=== PATIENT | female | born 1965 | race Caucasian/White ===

== ENCOUNTER 2017-03-16 18:28 | Emergency (ER) | payer MEDICAID ==
[~2017-03-16] VITALS: Ht 165.1 cm; Wt 84.8 kg
[~2017-03-16 18:28] MED LIST: ASCO500T45 PO; ATOR20TA PO; BENZ1TAB90 PO; CALC-751 PO; CLON0.5T PO; COL250 PO; FOLI1TAB19 PO; FURO-572 PO; MONT10TA35 PO; MULT-298 PO; OLAN5TAB29 PO; OLAN7.5T1 PO; VENL150C1 PO; [UNRECOGNIZED DRUG - OTHER] OT
[2017-03-16 18:54] VITALS: BP 147/67
--- NOTE | 2017-03-16 20:10 | NUR ---
PATIENT AMBULATED TO ER BED 4.
--- NOTE | 2017-03-16 20:20 | NUR ---
PATIENT PRESENTS TO ED WITH LEFT ARM SWOLLEN . PT DENIES N/V/D; SKIN IS PINK/WARM/DRY; AAOX4 WITH EVEN AND STEADY GAIT; LUNGS CLEAR BL; HR EVEN AND REGULAR; PT DENIES ANY FEVER, CP, SOB, OR COUGH AT THIS TIME; PATIENT STATES PAIN OF 0/10 AT THIS TIME; VSS; PATIENT POSITIONED FOR COMFORT; HOB ELEVATED; BEDRAILS UP X2; BED DOWN. ER MD MADE AWARE OF PT STATUS.
--- NOTE | 2017-03-16 20:30 | NUR ---
PATIENT BEING EVALUATED BY DR. GEE.
[2017-03-16 21:40] VITALS: BP 138/72
== END 2017-03-16 21:39 | disposition home or self-care (01) ==
LOC: MED 18:28
DX: M25.532 Pain in left wrist (principal); J45.909 Unspecified asthma, uncomplicated; Z88.1 Allergy status to other antibiotic agents; Z88.6 Allergy status to analgesic agent
CPT/HCPCS: 73090; 73110; 73130; 81002; 81025; 99284

== ENCOUNTER 2022-03-31 10:10 | Emergency (ER) | payer MEDICAID ==
[~2022-03-31] VITALS: Ht 165.1 cm; Wt 83.1 kg
[~2022-03-31 10:10] MED LIST changes: -ASCO500T45 PO; +ASCO500T95 PO; +CARB15DR41 OT; -VENL150C1 PO; +VENL150C4 PO; -[UNRECOGNIZED DRUG - OTHER] OT
[2022-03-31 10:14] VITALS: BP 183/91
[2022-03-31 12:09] VITALS: BP 179/92
== END 2022-03-31 12:08 | disposition home or self-care (01) ==
LOC: MED 10:10
DX: Z11.1 Encounter for screening for respiratory tuberculosis (principal); J45.909 Unspecified asthma, uncomplicated; Z88.5 Allergy status to narcotic agent
CPT/HCPCS: 71045; 99283

== ENCOUNTER 2022-07-04 15:40 | Emergency (ER) | payer MEDICAID ==
[~2022-07-04] VITALS: Ht 198.1 cm; Wt 76.2 kg
[2022-07-04 15:53] VITALS: BP 141/110
--- NOTE | 2022-07-04 16:17 | NUR ---
56 Y/O F BIB STAFF FROM [facility] ([facility]) C/O PAINFUL URINATION , URINARY FREQUENCY , LOSS OF APPITITE X 1 WEEK. PT COULD NOT STATE THE PAIN LEVEL. PMH: MED MR, SEIZURE, PHYCOSIS, ASTHMA ALLEGIES: ERYTHROMYCIN AND CODEIN
[2022-07-04 16:59] LABS: APPEARANCE,URINE CLEAR (CLEAR); BILIRUBIN,URINE NEGATIVE (NEGATIVE); BLOOD, URINE TRACE-I (NEGATIVE); COLOR,URINE YELLOW (YELLOW); LEUKOCYTE ESTERASE ,URINE 2+ (NEGATIVE); NITRITE, URINE NEGATIVE (NEGATIVE); UGLUCOSE NEGATIVE (NEGATIVE)
[2022-07-04 17:19] LABS: OTHER CASTS, URINE None Seen /LPF (None Seen)
[2022-07-04] MEDS ORDERED: CEPH-588 PO (17:44)
--- NOTE | 2022-07-04 17:46 | NUR ---
HEIDY MOHR AT BEDSIDE.
--- NOTE | 2022-07-04 18:05 | NUR ---
Patient discharged with v/s stable. Written and verbal after care instructions given and explained. Patient alert, oriented and verbalized understanding of instructions. Wheel Chair Assisted with by caregiver. All questions addressed prior to discharge. ID band removed. Patient advised to follow up with PMD. Rx of KEFLEX given. Patient educated on indication of medication including possible reaction and side effects. Opportunity to ask questions provided and answered.
[2022-07-04 18:07] VITALS: BP 99/51
== END 2022-07-04 18:05 | disposition home or self-care (01) ==
LOC: MED 15:40
DX: N39.0 Urinary tract infection, site not specified (principal); J45.909 Unspecified asthma, uncomplicated; Z88.5 Allergy status to narcotic agent
CPT/HCPCS: 81001; 87086; 99283